=== PATIENT | female | born 1995 | race Caucasian/White ===

== ENCOUNTER → 2019-03-31 10:46 | Outpatient (CLI) | payer OTHER, MEDICAID, SELFPAY ==
--- NOTE | 2019-03-31 | DI.MRI.S_ITS ---
PROCEDURE: MR PELVIS WO CON INDICATIONS: Left lower quadrant pain TECHNIQUE: Noncontrast axial and coronal T1 spin echo and STIR through the lumbosacral plexus region. Optional contrast may be given, followed by axial and coronal T1 spin echo with fat saturation through the sacral plexus. COMPARISON: None. FINDINGS: Image quality: Excellent. Lumbosacral plexus: Superior to the piriformis muscles, the pre-plexal structures appear normal, including the lumbosacral trunk and S1 root. Just anterior to the piriformis muscles, the sacral plexus proper demonstrates normal morphology (lumbosacral trunk, S1 to S3 nerve roots). Inferior to the piriformis muscles, the sciatic nerves appear normal. Soft tissues: The piriformis muscles appear symmetric in size. No presacral masses. Rectum appears normal in caliber and wall thickness. No pathologic free pelvic fluid. No visualized adenopathy by size criteria. Bones: Marrow is normal in overall signal. IMPRESSION: Source of left lower quadrant pain is not identified. The ovaries bilaterally are normal in size and free of edema. Scattered follicular cysts are noted bilaterally, symmetric. No inflammatory process or masslike structure is impinging on the lumbosacral plexus, as potential source of referred pain into the left lower quadrant. No free fluid or adjacent adenopathy is found. Dictated by: Vic Griffin M.D. on 04/01/2019 at 15:55 Approved by: Vic Griffin M.D. on 04/01/2019 at 15:58
== END ==
PROVIDERS: PCP Physician Assistant Medical; Visit Provider Physician Assistant Medical
DX: R10.32 Left lower quadrant pain (principal)
CPT/HCPCS: 72195